=== PATIENT | female | born 1985 | race African-American/Black ===

== ENCOUNTER 2017-01-16 17:15 | Emergency (ER) | payer MEDICAID ==
[~2017-01-16] VITALS: Ht 170.2 cm; Wt 119.0 kg
[2017-01-16] MEDS ORDERED: MORPHINE SULFATE 1MG/ML 1ML INJ SYR(NEO) IV ONE (21:45)
[2017-01-16] MEDS ORDERED: CEPHALEXIN 500MG CAPSULE PO ONE (21:45)
[2017-01-16] MEDS ORDERED: ONDANSETRON HCL 4MG/2ML VIAL IV ONE (21:45)
[2017-01-16 21:46] LABS: UCG SCREEN NEGATIVE
[2017-01-16] MEDS ORDERED: MORPHINE SULFATE 4 MG/ML CPJ (NOT FOR IM USE) IV ONE (22:00)
[2017-01-16 22:40] VITALS: BP 130/72
== END 2017-01-16 23:12 | disposition home or self-care (01) ==
LOC: ER 22:38
DX: L73.9 Follicular disorder, unspecified (principal); L03.311 Cellulitis of abdominal wall; I10 Essential (primary) hypertension
CPT/HCPCS: 81025; 96374; 96375; 99284; J2270; J2405; Z7610

== ENCOUNTER 2019-06-25 00:21 | Emergency (ER) | payer MEDICAID ==
[~2019-06-25] VITALS: Ht 170.2 cm; Wt 114.0 kg
[2019-06-25] MEDS ORDERED: ACETAMINOPHEN 500MG TABLET PO ONE (02:30)
[2019-06-25 03:46] LABS: BASOPHILS % 0.5 % (0.0-2.0); CHLORIDE 106 mEq/L (98-107); EOSINOPHILS % 0.2 % (0.0-5.0); HEMATOCRIT. 34.2 % (36.0-48.0); HEMOGLOBIN. 11.2 g/dL (12.0-16.0); LYMPHOCYTES % 15.2 % (20.0-50.0); MEAN CORPUSCULAR HEMOGLOBIN 25.1 pg (28.0-32.0); MEAN CORPUSCULAR VOLUME 76.5 fL (81.0-99.0); MEAN PLATELET VOLUME 7.8 fl (7.4-10.4); MONOCYTES % 5.1 % (2.0-8.0); PLATELET 322 x1000/uL (130-400); RED BLOOD CELL COUNT 4.47 mill/uL (4.2-5.4); RED CELL DISTRIBUTION WIDTH 15.8 % (11.6-14.6)
[2019-06-25] MEDS ORDERED: MORPHINE SULFATE 4 MG/ML CPJ (NOT FOR IM USE) IV ONE (04:00)
[2019-06-25 04:10] LABS: B-HCG QUANTITATIVE 72140 mIU/mL (<3)
[2019-06-25 05:30] VITALS: BP 133/88
== END 2019-06-25 05:42 | disposition home or self-care (01) ==
LOC: ER 00:21
DX: O02.1 Missed abortion (principal); R03.0 Elevated blood-pressure reading, without diagnosis of hypertension
CPT/HCPCS: 36415; 76830; 76856; 80053; 84702; 85025; 86850; 86900; 86901; 96374; 99284; J2270; Z7610

== ENCOUNTER 2019-11-08 15:43 | Emergency (ER) | payer MEDICAID ==
[~2019-11-08] VITALS: Ht 170.2 cm; Wt 112.0 kg
[2019-11-08] MEDS ORDERED: KETOROLAC 60MG/2ML VIAL IM ONE (17:30)
[2019-11-08 17:42] LABS: CLARITY URINE CLEAR (CLEAR); COLOR URINE YELLOW (YELLOW); KETONES URINE TRACE (NEGATIVE); LEUKOCYTE ESTERASE URINE NEGATIVE (NEGATIVE); NITRITE URINE NEGATIVE (NEGATIVE); OCCULT BLOOD URINE 2+ (NEGATIVE); PH URINE 6.5 (4.5-8.0); PROTEIN URINE NEGATIVE (NEGATIVE); SPECIFIC GRAVITY URINE 1.027 (1.005-1.030)
[2019-11-08 18:37] VITALS: BP 123/95
== END 2019-11-08 18:39 | disposition home or self-care (01) ==
LOC: ER 15:43
DX: N39.0 Urinary tract infection, site not specified (principal); I10 Essential (primary) hypertension; Z90.49 Acquired absence of other specified parts of digestive tract; Z98.890 Other specified postprocedural states
CPT/HCPCS: 81003; 81025; 96372; 99283; J1885